=== PATIENT | female | born 1955 | race Caucasian/White ===

== ENCOUNTER 2016-08-07 15:23 | Observation (INO) | payer MEDICARE ==
[~2016-08-07] VITALS: Ht 165.1 cm; Wt 68.6 kg
--- OUTSIDE RECORDS SUMMARY | 2016-08-07 15:26 | External Medical Summary Rpt ---
Author Author , Organization [employer] Address Unknown Phone Unavailable Purpose Continuity of Care Document - through 2016
--- OUTSIDE RECORDS SUMMARY | 2016-08-07 15:26 | External Medical Summary Rpt ---
Demographics Preferred Language [place] Marital Status Unknown Protestant Affiliation Unknown Race Unknown Ethnic Group Unknown Author Author , Organization [employer] Address Unknown Phone Unavailable Purpose Continuity of Care Document - through 2016 Immunization No patient found.
--- OUTSIDE RECORDS SUMMARY | 2016-08-07 15:26 | External Medical Summary Rpt ---
Author Author [employer] Organization [employer] Address Unknown Phone Unavailable
--- OUTSIDE RECORDS SUMMARY | 2016-08-07 15:26 | External Medical Summary Rpt ---
Demographics Preferred Language Haitian Marital Status Unknown Rastafari Affiliation Unknown Race Unknown Ethnic Group Unknown Author Author , Organization [employer] Address Unknown Phone Unavailable Purpose Continuity of Care Document - through 2016 Immunization No patient found.
[2016-08-07 16:36] VITALS: BP 116/60
[2016-08-07 16:40] VITALS: BP 116/60
[2016-08-07] MEDS ORDERED: BAYER ASPIRIN C81 MG PO (17:38)
[2016-08-07] MEDS ORDERED: LISINOPRIL 5MG T5 MG PO (17:38)
[2016-08-07 17:41] LABS: LYMPH # 2.2 K/mm3 (0.7-4.5)
[2016-08-07 17:46] LABS: HEMOGLOBIN 12.2 g/dL (12.2-16.2)
[2016-08-07] MEDS ORDERED: METFORMIN500 MG PO (17:53)
[2016-08-07] MEDS ORDERED: RANITIDINE HCL150 MG PO (17:54)
[2016-08-07] MEDS ORDERED: SERTRALINE25 MG PO (17:54)
--- NOTE | 2016-08-07 19:08 | RADIOLOGY REPORT PS360 ---
CHEST(2 VIEWS-NOT PORTABLE) Ordering physician: Bravo Day MD Age: 60 years Female INDICATION: chest symptomsCP PROCEDURE: CHEST(2 VIEWS-NOT PORTABLE) FINDINGS: No prior Lungs well expanded and clear with nothing definitely acute. No pneumothorax. No pleural effusion. Heart normal size. Normal pulmonary vascularity. Hilar and mediastinal structures appear satisfactory. Chest wall unremarkable. T-spine intact. IMPRESSION ----- No active disease.. Nothing definite acute at chest
[2016-08-07 20:12] VITALS: BP 110/62
[2016-08-07 21:00] VITALS: BP 110/62
--- NOTE | 2016-08-07 22:41 | PHARMACY CLINIC NOTE ---
Patient Demographics Patient Demographics Admission date: 08/07/16 Date: 08/07/16 Time: 2240 Allergies Coded Allergies: Unable to Assess (08/07/16) HEIGHT- FT: 5 IN: 5.00 K.635 VTE General Information Labs: Laboratory Tests 08/07 1730 Hematology Hgb (12.2 - 16.2 g/dL) 12.2 Hct (37.0 - 47.0 %) 36.7 L Plt Count (142 - 424 K/mm3) 269 Disclaimer The following section includes nursing documentation that has been pulled in for pharmacy review. Patient's VTE score: 2 Patient's VTE Risk: VERY LOW RISK Clinical trial participant? No VTE prophylaxis [id number] VTE prophylaxis ordered? Yes Type of prophylaxis/treatment: GISELA at 2241
[2016-08-08 00:14] VITALS: BP 104/65
[2016-08-08 04:27] VITALS: BP 90/45
[2016-08-08 08:00] VITALS: BP 98/51
--- NOTE | 2016-08-08 08:53 | Discharge Summary Standard ---
Demographics: Admit date: 08/07/16 Chief complaint: Chest pain/weakness PRIMARY DIAGNOSIS: RADIATING CHEST PAIN,DIABETIC Allergies: Coded Allergies: Unable to Assess (08/07/16) History of present illness: History of present illness: 60-year-old white female with history of normal stress test 8 years ago who presented to the office weakness, chest pain that radiated across her precordium and some dyspnea with exertion. She was admitted to hospital for further evaluation. Past medical history: Family HX Diabetes Yes CAD Yes Hypertension Yes Hyperlipidemia Yes Cancer Yes TB No Immunization HX DT/Tetanus 1-4 Years Ago Pneumonia Received In Past TB Test in last year No General CAD? No Angina: Yes MT: No Hypertension? Yes Hyperlipidemia? No CHF? No DVT? No PE? No COPD? No Asthma? No Anemia? No GERD? Yes Gastric ulcers? Yes GI Bleed? No Hernia? No Thyroid Problems? No Hypothyroidism? No CVA? No Seizures? Yes Diabetes? Yes Insulin Dependent: No Insulin Pump: No Home FSBS? Yes Renal Insuffiency? No UTI? Yes Stones? No GB Disease: Yes Nephritic Syndrome? No Asplenia? No Hepatitis? No Sickle Cell Disease? No Arthritis? No Migraines? No Cataracts? Yes Glaucoma? No MRSA? No HIV? No TB? No Anxiety? Yes Depression? Yes Cancer? Yes More? No Past Surgical HX Previous Surgery?Y GALLBLADDER CATARACTS BOWEL OBS X6 T&A COMPLETE HYSTERECTOMY MENISCUS SX Current home meds: Reported Medications LISINOPRIL (Lisinopril) 5 MG PO DAILY Aspirin (Chivo Chewable Aspirin) 81 MG PO DAILY Metformin HCL (Metformin) 500 MG PO DAILY Ranitidine Hcl (Ranitidine 150MG) 150 MG PO BID Sertraline Hcl (Sertraline HCl) 25 MG PO DAILY Social Hx: Smoking HX Tobacco Yes Type Cigarettes Packs/day < 1 PACK Alcohol Alcohol: No Hx of Drug Use Drug Use? No Patien't marital status is Patient's support system is excellent Review of systems: Constitutional malaise, weakness. Respiratory see HPI. Cardiovascular see HPI Gastrointestinal/Abdominal No no symptoms reported Genitourinary No: no symptoms reported. Musculoskeletal No: no symptoms reported. Neurological No: see HPI. Exam: Lab data for last 24 hours: Laboratory Tests 08/07/16 2330: Creatine Kinase 53, CK-MB (CK-2) Rel Index 0.9, CK and CKMB Interp < 0.5, Troponin I < 0.02 08/07/162035: Creatine Kinase 55, CK-MB (CK-2) Rel Index 1.3, CK and CKMB Interp 0.7, Troponin I < 0.02 08/07/161729: Creatine Kinase 61, CK-MB (CK-2) Rel Index 0.8, CK and CKMB Interp 0.5, Troponin I < 0.02 08/07/161729: Sodium 140, Potassium 4.1, Chloride 105, Carbon Dioxide 22, BUN 13, Creatinine 1.2 H, Estimated Creat Clear 53, Estimated GFR (MDRD) 46 L, Glucose 91, Calcium 9.4, Triglycerides 236 H, Cholesterol 176, LDL Cholesterol 91.8, VLDL Cholesterol 47.2 H, HDL Cholesterol 37.0 L, WBC 7.3, RBC 3.99 L, Hgb 12.2, Hct 36.7 L, MCV 92.0, RDW 12.8, Plt Count 269, MPV 6.9 L, Gran % 58.5, Gran # 4.2, Lymphocytes % 31.0, Monocytes % 4.7, Eosinophils % 5.1, Basophils % 0.7, Lymphocytes # 2.2, Monocytes # 0.3, Eosinophils # 0.4, Basophils # 0.1, PUBS MCHC 33.3, MCH 30.6 Admission vital signs: 1ST Vital Signs Result Date Time Pulse Ox 100 08/07 1636 O2 Delivery ROOM AIR 08/07 1636 B/P 116/60 08/07 1636 Temp 98.1 08/07 1636 Pulse 60 08/07 1636 Resp 18 08/07 1636 O2 Flow Rate 2 08/07 1908 Exam General appearance: normal appearance, alert, awake Eyes: normal exam, anicteric ENT: normal exam, mucous membranes moist Neck: normal inspection, non-tender, no carotid bruit, no JVD Cardiovascular: normal exam Respiratory: normal exam, clear to auscultation ABD: normal exam, non-distended, normal bowel sounds Extremities: normal exam Musculoskeletal: normal exam Skin: normal exam, intact, normal color Neuro: normal exam, alert, no deficit Hospital Course Hospital Course: Patient was admitted, ruled out for myocardial infarction by enzyme and electrocardiogram criteria. Her lisinopril was held overnight and this morning she feels good. Plan will be to discharge her home today. I've advised her to take one half tablet of her lisinopril daily starting tomorrow, to see if she may be having some hypotensive episodes relative to her baseline, and we will work her up for risk stratification with a GXT early next week. Medications Medications: Discharge meds are as noted. Follow up Follow up in office in: 3 DAYS with: Bravo Day MD at 0807
[2016-08-08 09:20] VITALS: BP 98/51
--- NOTE | 2016-08-10 06:51 | RADIOLOGY REPORT PS360 ---
PROCEDURE: 2-D M-mode and color Doppler study INDICATIONS FOR THE TEST: Chest pain X COPD Heart Murmur Tobacco SmokingX Palpitations Fatigue Syncope Edema Hypertension Diabetes Mellitus Rheumatic Fever SOB GRIFFIN Obesity Hyperlipidemia Family History HD Additional History PATIENT INFORMATION HEIGHT: 66 WEIGHT:153 GENDER: Female B/P:110/70 2-D/M-MODE INTERPRETATION: 2-D MEASUREMENTS OBSERVED VALUES IN CMS Right Ventricular Dimension (RVDd) 1.4 Interventricular Septum (Thickness)(IVsd) .7 Left Ventricular Internal Dimensions(LVIDd) 5.7 Left Ventricular Posterior Wall (Thickness)(LVPWd) .7 Aortic Root 2.9 Aortic Cusp Separation 1.9 Left Atrial Dimensions (LAD) 2.4 2D 1. Left atrium is normal size, left ventricle is normal size, there is no concentric left ventricular hypertrophy, visually estimated ejection fraction of 55% with no obvious regional wall motion abnormality. 2. The right atrium and right ventricle are normal size and contractility. 3. The aortic valve is minimally thickened and fibrosed consistent with mild aortic sclerosis. 4. The mitral and tricuspid valve are structurally normal. 5. The pulmonic valve is not well visualized. 6. No significant pericardial effusion noted. DOPPLER INTERROGATION: Doppler interrogation of the aortic mitral and tricuspid valvular presence of trace mitral and tricuspid regurgitation, tricuspid regurgitant jet velocity insufficient for calculation of the right ventricular systolic pressure, diastolic parameters are within normal range. CONCLUSION: 1. Normal left ventricular size, preserved left ventricular systolic function, visually estimated ejection fraction 55% with no obvious regional wall motion abnormality, diastolic parameters are within normal range. 2. Trace mitral and tricuspid regurgitation. 3. No significant pericardial effusion noted.
== END 2016-08-08 09:20 | disposition home or self-care (01) ==
LOC: 2ND 15:23
PROVIDERS: Nurse Practitioner Family
DX: R07.9 Chest pain, unspecified (principal); E11.9 Type 2 diabetes mellitus without complications; R06.00 Dyspnea, unspecified; R53.1 Weakness
CPT/HCPCS: G0378; G0379

== ENCOUNTER → 2016-08-24 | Outpatient (CLI) | payer MEDICARE ==
[~2016-08-24] MED LIST: BAYER ASPIRIN C81 MG PO; LISINOPRIL 5MG T5 MG PO; METFORMIN500 MG PO; RANITIDINE HCL150 MG PO; SERTRALINE25 MG PO
--- NOTE | 2016-08-24 15:24 | RADIOLOGY REPORT PS360 ---
History and Indications: Hypertension, diabetes, family history, chest pain shortness of breath Procedure: Patient exercised on Ronan protocol for 7 minutes and 6 seconds, resting heart rate was 57 bpm resting blood pressure 119/65, with exercise maximum heart rate achieved was 1 44 bpm which is equal to 91% of the maximum predicted heart rate and a blood pressure was 151/72. Test was started due to shortness of breath patient denied any complained of chest pain. Patient has good exercise capacity achieved 10.1mets of workload on treadmill, the blood pressure response to exercise was adequate. Electrocardiogram: Resting electrocardiogram showed sinus bradycardia, with exercise there is less than 1.[address] segment depression from the baseline EKG. The EKG portion of the exercise Myoview is negative for ischemia. During recovery, Patient developed narrow complex tachycardia requiring IV beta blockers slowdown the heart rate. Cardiac stress and resting SPECT images: Cardiac stress and the suspect images were obtained using technetium 99 Myoview 10.7 mCi at rest and 31.4 mCi at stress, gated SPECT further analysis of segmental wall motion and calculation of the ejection fraction also done. Cardiac stress and the suspect images show a mild fixed defect in the anterior wall with normal contractility in the gated SPECT and the perfusion of the apex being normal is likely secondary to soft tissue attenuation, no reversible ischemia seen. Computer derived ejection fraction over 65% no wall motion abnormality, right ventricle is normal size and contractility. Conclusion: 1. The EKG portion of the exercise Myoview is negative for ischemia, patient has good exercise capacity achieved 10.1mets of workload on treadmill, the blood pressure response to exercise with adequate, there was no exercise-induced chest discomfort. Patient developed narrow complex tachycardia during recovery,Requiring IV beta blockers to slowdown the heart rate. 2. No obvious scintigraphic evidence of reversible ischemia seen at this level of exercise, computer derived ejection fraction is over 65% with no obvious regional wall motion abnormality, right ventricle is normal size and contractility.
== END ==
LOC: RAD 05:59
DX: R07.89 Other chest pain (principal)
CPT/HCPCS: A9502

== ENCOUNTER → 2016-08-25 | Outpatient (CLI) | payer MEDICARE | LOC: RT 12:34 | DX: R07.89 Other chest pain (principal); R06.09 Other forms of dyspnea ==

== ENCOUNTER → 2016-10-16 | Outpatient (CLI) | payer MEDICARE ==
--- NOTE | 2016-10-21 20:27 | RADIOLOGY REPORT PS360 ---
DIG MAMM-SCREEN JEAN CARLOS W/CAD CAD Screening COMPARISON: Digital mammograms 01/16/2014 and 02/13/2015 INDICATION: There is no personal or family history of breast cancer. There been previous biopsies on each breast for benign disease. TECHNIQUE: Standard CC and MLO images were obtained. R2 CAD reviewed. FINDINGS: Moderate diffuse scattered fibroglandular densities are seen in each breast. Again noted is a mole marker near the nipple right breast. There are few benign-appearing calcifications in each breast. There is no suspicious lesion and there are no suspicious microcalcifications. IMPRESSION: Moderate diffuse breast density with no suspicious lesion seen recommend yearly follow-up BI-RADS CATEGORY: 2_Benign RECOMMENDED FOLLOWUP: 12M 12 MONTH FOLLOW-UP (A letter has been sent to the patient regarding results of the study.)
== END ==
LOC: RAD 09:17
DX: Z12.31 Encounter for screening mammogram for malignant neoplasm of breast (principal)
CPT/HCPCS: G0202